=== PATIENT | female | born 1985 | race Caucasian/White ===

== ENCOUNTER 2018-02-09 16:02 | Outpatient (CLI) | payer OTHER ==
[~2018-02-09] VITALS: Ht 162.6 cm; Wt 70.1 kg
[2018-02-09] MEDS ORDERED: PREN1TAB71 PO (16:17)
[2018-02-09 16:18] VITALS: BP 121/64; Ht 162.6 cm; Wt 70.1 kg
--- NOTE | 2018-02-09 19:49 | PN ---
Triage Information Date/Time Reason for visit: She had one elevated blood pressure in [facility] during today's visit, sent for further evaluation Weeks of Gestation 25 weeks and 6 days /Para 014 Diabetes: none Hypertention: none Additional information 32-year-old with single intrauterine at 25 weeks and 6 days with a LICHA of 05/09/2018 sent for further evaluation from [facility]. She was seen in clinic today she had one elevated blood pressure, rep eat blood pressure in clinic was within normal limits. She states good movement. She denies nausea, vomiting, shortness of breath, chest pain, headache, visual changes, vaginal bleeding or LOF. Objective Vital Signs Date Temp Pulse Resp B/P (MAP) Pulse Ox O2 O2 Flow FiO2 Time Delivery Rate 02/09/18 99.0 121/64 16:18 (83) Heart Rate: 140's Contractions: None Results/Medications Result Diagram: 02/09/18 1639 02/09/18 1639 Results 24 hrs Laboratory Tests Test 02/09/18 16:00 02/09/18 16:38 02/09/18 16:39 Urine Color YELLOW Urine Clarity CLOUDY A Urine pH 7.0 Urine Specific [place] 1.020 Urine Ketones NEGATIVE Urine Nitrite NEGATIVE Urine Bilirubin NEGATIVE Urine Urobilinogen NEGATIVE Urine Leukocyte Esterase NEGATIVE Urine Microscopic RBC 1 Urine Microscopic WBC 1 Urine Squamous Epithelial Cells FEW Urine Bacteria FEW A Urine Hemoglobin NEGATIVE Urine Glucose 1+ H Urine Total Protein NEGATIVE Prothrombin Time 12.6 Prothrombin Time Ratio 1.0 INR International Normalized Ratio 0.93 Activated Partial Thromboplast Time 30.7 White Blood Count 8.0 Red Blood Count 3.97 L Hemoglobin 12.1 Hematocrit 35.9 L Mean Corpuscular Volume 90.4 Mean Corpuscular Hemoglobin 30.5 Mean Corpuscular Hemoglobin Concent 33.7 Red Cell Distribution Width 13.2 Platelet Count 247 Mean Platelet Volume 10.1 Immature Granulocytes % 0.600 H Neutrophils % 70.6 Lymphocytes % 20.8 Monocytes % 7.2 Eosinophils % 0.7 Basophils % 0.1 Nucleated Red Blood Cells % 0.0 Immature Granulocytes # 0.050 H Neutrophils # 5.7 Lymphocytes # 1.7 Monocytes # 0.6 Eosinophils # 0.1 Basophils # 0.0 Nucleated Red Blood Cells # 0.0 Sodium Level 138 Potassium Level 3.7 Chloride Level 104 Carbon Dioxide Level 25 Anion Gap 9 Blood Urea Nitrogen 8 Creatinine 0.37 L Est Glomerular Filtrat Rate mL/min > 60 Glucose Level 99 Uric Acid 2.5 L Calcium Level 9.1 Total Bilirubin 0.3 Direct Bilirubin 0.00 Indirect Bilirubin 0.3 Aspartate Amino Transf (AST/SGOT) 41 Alanine Aminotransferase (ALT/SGPT) 85 H Alkaline Phosphatase 66 Total Protein 7.1 Albumin 3.6 Globulin 3.50 H Albumin/Globulin Ratio 1.02 Imaging Results There is a single fetus in longitudinal lie, cephalic presentation. Cardiac activity is documented at 140 beats per minute. . The placenta is anterior and well clear of the cervix. Amniotic fluid index equals 23.7. Cervical length is measured transabdominally at 4.0 cm. Biophysical profile: movement 2/2 tone 2/2. breathing 2/2 NORMA 2/2 Total 09/13 IMPRESSION: 1. Biophysical profile of 09/13. RPTAT:AAJJ . Physician Lon Date Time Electronically viewed and signed by Physician Lon on 02/09/2018 18:30 GW/ Disposition: Discharge Assessment/Plan 32-year-old with single intrauterine at 25 weeks and 6 days had one elevated blood pressure during visit today, repeat the blood pressure at the clinic was normal. Patient sent here for further evaluation. All her blood pressure in triage were within normal limits. She has no symptom of preeclampsia with severe features. CBC is within normal limits, CMP performed which all are normal except ALT of 85 (upper limit of normal range is 69) UA with no urine protein. Uric acid 2.5. Labs, ultrasound discussed with patient and her partner in detail, I gave them the option to stay here for 24- hour urine protein or lab 24-hour urine protein as outpatient. She would like to do 24-hour urine protein as an outpatient. Sign and symptom of preeclampsia with severe features discussed in detail with patient and her partner both expressed understanding I strongly recommend come back to triage with any sign or symptom of severe features. AURELIA COSTELLO Feb 09, 2018 19:49
--- NOTE | 2018-02-09 23:05 | TRIAGE ---
OB Triage Datetime Report Generated by CPN: 02/09/2018 23:05 Datetime: 02/09/2018 19:11 Stage of : OB Triage Labor Evaluation Frequency: 0 Monitor Mode: External Pattern: Normal: <= 5 Contractions in 10 Minutes Resting Tone [place]: Relaxed Heart Rate FHR Baseline Rate: 130 Monitor Mode: External US Variability: Moderate 6-25 bpm Accelerations: 15X15 Decelerations: None Category: Category I Datetime: 02/09/2018 18:23 Labor Evaluation Frequency: 0 Monitor Mode: External Pattern: Normal: <= 5 Contractions in 10 Minutes Resting Tone [place]: Relaxed Heart Rate FHR Baseline Rate: 125 Monitor Mode: External US Variability: Moderate 6-25 bpm Accelerations: 15X15 Decelerations: None Category: Category I Datetime: 02/09/2018 17:39 Stage of : OB Triage Labor Evaluation Frequency: 0 Monitor Mode: External Pattern: Normal: <= 5 Contractions in 10 Minutes Resting Tone [place]: Relaxed Heart Rate FHR Baseline Rate: 135 Monitor Mode: External US Variability: Moderate 6-25 bpm Accelerations: 15X15 Decelerations: None Category: Category I Pain Presence: None/Denies Pain Type: N/A Datetime: 02/09/2018 17:22 Comments: LOSS OF CONTACT Datetime: 02/09/2018 16:21 Stage of : OB Triage Assessment Type: Triage Maternal Assessment Level of Consciousness: Fully Conscious DTR's/Clonus: DTRs 2+; No Clonus Headache: Denies Blurred Vision: No Respiratory Effort: Unlabored; Regular Rhythm; Equal Expansion Breath Sounds, Left: Clear and Equal Breath Sounds, Right: Clear and Equal Nausea/Vomiting: Denies RUQ Epigastric Pain: Denies Lower Extremities Edema: None Degree: None Upper Extremities Edema: None Facial Edema: None Fall Risk Assessment History of Falling: (0) No Secondary Diagnosis: (0) No Ambulatory Aid: (0) Bedrest/Nurse Assist IV Therapy: (0) No Gait: (0) Normal/Bedrest/Immobile Mental Status: (0) Oriented to Own Ability Fall Score: 0 Fall Risk Score Definition: No Risk: No action required Labor Evaluation Frequency: 0 Monitor Mode: External Pattern: Normal: <= 5 Contractions in 10 Minutes Resting Tone [place]: Relaxed Heart Rate FHR Baseline Rate: 140 Monitor Mode: External US Variability: Moderate 6-25 bpm Accelerations: 15X15 Decelerations: None Category: Category I Pain Assessment Pain Scale: 0 Pain Presence: None/Denies Pain Type: N/A Datetime: 02/09/2018 16:20 Time of Arrival: 02/09/2018 16:00 EGA: 25.6 Arrived By: Ambulatory Arrived From: Office Chief Complaint: SENT TO R//O ECLAMSPIA Movement: Present Contractions: Denies/Absent Rupture of Membranes: Denies Vaginal Bleeding: None Vaginal Discharge: Denies Recent Sexual Intercouse: Denies Abdominal Trauma: Not Applicable Patient Complaints: Other Time Provider Notified: 02/09/2018 19:10 Provider Notified: TRANG (Annotations: Data stored by CPN on behalf of user) Initial Plan: [facility] PANEL
== END 2018-02-09 19:55 | disposition home or self-care (01) ==
LOC: OBT 16:02 → L-D 16:04 → OBT 19:55
PROVIDERS: ATTEND Specialist
DX: O26.892 Other specified pregnancy related conditions, second trimester (principal); Z3A.25 25 weeks gestation of pregnancy
CPT/HCPCS: 76818; 80053; 81001; 84560; 85025; 85610; 85730; Z7500; G0463

== ENCOUNTER 2018-02-11 12:47 | Outpatient (CLI) | payer OTHER ==
[~2018-02-11] VITALS: Ht 162.6 cm; Wt 70.3 kg
[~2018-02-11 12:47] MED LIST: PREN1TAB71 PO
[2018-02-11 13:02] VITALS: BP 120/71; PULSE 64; RESP 18; Ht 162.6 cm; Wt 70.3 kg
--- NOTE | 2018-02-11 14:40 | TRIAGE ---
OB Triage Datetime Report Generated by CPN: 02/11/2018 14:40 Datetime: 02/11/2018 14:17 Stage of : OB Triage Frequency: none Pattern: Normal: <= 5 Contractions in 10 Minutes FHR Baseline Rate: 140 Monitor Mode: External US FHR Baseline Changes: No Baseline Change Variability: Moderate 6-25 bpm Accelerations: 15X15 Decelerations: None Category: Category I Pain Presence: None/Denies Membrane Status: Intact Datetime: 02/11/2018 14:02 Stage of : OB Triage Frequency: none Pattern: Normal: <= 5 Contractions in 10 Minutes Resting Tone [place]: Relaxed FHR Baseline Rate: 140 Monitor Mode: External US FHR Baseline Changes: No Baseline Change Variability: Moderate 6-25 bpm Accelerations: 15X15 Decelerations: None Category: Category I Pain Presence: None/Denies Datetime: 02/11/2018 13:12 Stage of : OB Triage Headache: Denies Blurred Vision: No RUQ Epigastric Pain: Denies Facial Edema: None Frequency: none Pattern: Normal: <= 5 Contractions in 10 Minutes FHR Baseline Rate: 135 Monitor Mode: External US FHR Baseline Changes: No Baseline Change Variability: Moderate 6-25 bpm Accelerations: 15X15 Decelerations: None Category: Category I Pain Presence: None/Denies Datetime: 02/11/2018 13:07 Stage of : OB Triage Headache: Denies Blurred Vision: No RUQ Epigastric Pain: Denies Facial Edema: None Frequency: none Pattern: Normal: <= 5 Contractions in 10 Minutes FHR Baseline Rate: 150 Monitor Mode: External US FHR Baseline Changes: No Baseline Change Variability: Moderate 6-25 bpm Decelerations: None Pain Presence: None/Denies Membrane Status: Intact Datetime: 02/11/2018 12:58 Time of Arrival: 02/11/2018 12:58 EGA: 26.1 Arrived By: Ambulatory Arrived From: Home Chief Complaint: follow up fr high blood pressure and 24hr urine collection Movement: Present Contractions: Denies/Absent Rupture of Membranes: Denies Vaginal Bleeding: None Vaginal Discharge: Denies Recent Sexual Intercouse: Denies Abdominal Trauma: Not Applicable Patient Complaints: Other Additional Patient Complaints: presented to triage for follow up for high blood pressure, denies h/ a, blurry vision and epigastric pain Time Provider Notified: 02/11/2018 13:16 Provider Notified: Sb Initial Plan: efm/ u/s, pi panel Datetime: 02/11/2018 12:57 Stage of : OB Triage Level of Consciousness: Fully Conscious DTR's/Clonus: DTRs 2+; No Clonus Headache: Denies Blurred Vision: No Respiratory Effort: Unlabored; Regular Rhythm; Equal Expansion Breath Sounds, Left: Clear and Equal Breath Sounds, Right: Clear and Equal Nausea/Vomiting: Denies RUQ Epigastric Pain: Denies Lower Extremities Edema: None Degree: None Upper Extremities Edema: None Degree: None Facial Edema: None Temperature Route: Oral History of Falling: (0) No Secondary Diagnosis: (0) No Ambulatory Aid: (0) Bedrest/Nurse Assist IV Therapy: (0) No Gait: (0) Normal/Bedrest/Immobile Mental Status: (0) Oriented to Own Ability Fall Score: 0 Fall Risk Score Definition: No Risk: No action required Monitor Mode: External Monitor Mode: External US Pain Scale: 0
--- NOTE | 2018-02-11 14:49 | PN ---
Triage Information Date/Time 02/11/2018 Reason for visit: for evaluation of elevated BP in office Weeks of Gestation 26 /Para Diabetes: none Hypertention: none Additional information patient was seen for routine PNC visit at [facility] on 02/09/2017. she had one elevated BP. repeat BP was normal. she denies headaches, visual changes or RUQ pain. she was sent to L&D for PIH evaluation. all her BPs were normal in L&D. Labs only significant for mild elevation of ALT. today she denies headaches, visual changes or RUQ pain. today all her BPs are normal (Done in sitting position). she denies UCs, LOF per vaginal or VB. she reports good FM. I explained to patient the abnormal ALT value and requested her to give copy of result to her PNC clinic for close monitoring. Objective Vital Signs Date Temp Pulse Resp B/P (MAP) Pulse Ox O2 O2 Flow FiO2 Time Delivery Rate 02/11/18 98.1 64 18 120/71 99 Room Air 13:02 (87) Results/Medications Result Diagram: 02/11/18 1359 02/11/18 1359 Results 24 hrs Laboratory Tests Test 02/11/18 11:00 02/11/18 13:11 02/11/18 13:59 Urine Random Creatinine 119.22 Urine Collection Duration 24 Urine Total Volume 24 Hours 1000 Urine Creatinine Timed 24 Creatinine Clearance 188.2 H Urine Total Volume (Protein) 1000 Urine Total Protein 24 Hour 60.0 Urine Color YELLOW Urine Clarity CLOUDY A Urine pH 6.0 Urine Specific [place] 1.026 Urine Ketones TRACE A Urine Nitrite NEGATIVE Urine Bilirubin NEGATIVE Urine Urobilinogen 1+ H Urine Leukocyte Esterase 1+ H Urine Microscopic RBC 4 Urine Microscopic WBC 10 H Urine Squamous Epithelial Cells MANY A Urine Bacteria FEW A Urine Mucus FEW A Urine Hemoglobin NEGATIVE Urine Glucose NEGATIVE Urine Total Protein NEGATIVE White Blood Count 8.1 Red Blood Count 3.95 L Hemoglobin 12.2 Hematocrit 36.4 L Mean Corpuscular Volume 92.2 Mean Corpuscular Hemoglobin 30.9 Mean Corpuscular Hemoglobin Concent 33.5 Red Cell Distribution Width 13.2 Platelet Count 248 Mean Platelet Volume 10.0 Immature Granulocytes % 0.600 H Neutrophils % 74.7 Lymphocytes % 17.8 Monocytes % 6.3 Eosinophils % 0.5 Basophils % 0.1 Nucleated Red Blood Cells % 0.0 Immature Granulocytes # 0.050 H Neutrophils # 6.0 Lymphocytes # 1.4 Monocytes # 0.5 Eosinophils # 0.0 Basophils # 0.0 Nucleated Red Blood Cells # 0.0 Prothrombin Time 12.7 Prothrombin Time Ratio 1.0 INR International Normalized Ratio 0.94 Activated Partial Thromboplast Time 30.8 Fibrinogen Pending Sodium Level 136 Potassium Level 4.1 Chloride Level 106 Carbon Dioxide Level 23 Anion Gap 7 Blood Urea Nitrogen 11 Creatinine 0.44 Est Glomerular Filtrat Rate mL/min > 60 Glucose Level 94 Uric Acid 2.7 L Calcium Level 9.0 Total Bilirubin 0.4 Direct Bilirubin 0.00 Indirect Bilirubin 0.4 Aspartate Amino Transf (AST/SGOT) 27 Alanine Aminotransferase (ALT/SGPT) 58 Alkaline Phosphatase 69 Total Protein 7.0 Albumin 3.6 Globulin 3.40 H Albumin/Globulin Ratio 1.05 Disposition: Discharge Assessment/Plan no sign of PIH patient may f/u at [facility] precautions given REMY BLAKE MD Feb 11, 2018 14:49
== END 2018-02-11 15:05 | disposition home or self-care (01) ==
LOC: OBT 12:47 → L-D 12:48 → OBT 15:05
PROVIDERS: ATTEND Specialist
DX: O13.2 Gestational [pregnancy-induced] hypertension without significant proteinuria, second trimester (principal); Z3A.26 26 weeks gestation of pregnancy
CPT/HCPCS: 76818; 80053; 81001; 82575; 84156; 84560; 85025; 85384; 85610; 85730; Z7500; G0463

== ENCOUNTER 2018-05-20 12:38 | Inpatient (IN) | payer OTHER ==
[~2018-05-20] VITALS: Ht 162.6 cm; Wt 75.3 kg
[2018-05-20 12:52] VITALS: Ht 162.6 cm; Wt 75.3 kg
[2018-05-20 12:53] VITALS: BP 123/75; PULSE 86; RESP 20
[2018-05-20] MEDS ORDERED: CARBOPROST 250 MCG INJ IM PRN (15:30)
[2018-05-20] MEDS ORDERED: OXYTOCIN 30 UNITS/LR 500 ML IV SCH ×3 (15:30)
[2018-05-20] MEDS ORDERED: IBUPROFEN 600 MG TAB PO PRN (15:30)
[2018-05-20] MEDS ORDERED: METHYLERGONOVINE 0.2 MG INJ IM PRN (15:30)
[2018-05-20] MEDS ORDERED: LIDOCAINE 1% (MPF) 30 ML INJ INJ PRN (15:30)
[2018-05-20] MEDS ORDERED: OXYTOCIN 30 UNITS/LR 500 ML IV PRN (15:30)
[2018-05-20] MEDS ORDERED: MISOPROSTOL 200 MCG TAB PR PRN (15:30)
[2018-05-20] MEDS ORDERED: BUTORPHANOL 2 MG INJ IV PRN (15:30)
--- NOTE | 2018-05-20 16:03 | HP ---
Date/Time of Note Date/Time of Note DATE: 05/20/18 TIME: 16:02 OB - History Hx of Present Free Text/Dictation @40+wks GA in labor : 5 Para: 4 Care: Good Care Ultrasounds: Normal mid trimester US Obstetrical Complications: None Medical Complications: None Past Family/Social History * Past Medical, Surgical, Family and Obstetric Histories reviewed from [facility]. OB Admission Exam Vital Signs Vital Signs Vital Signs Date Temp Pulse Resp B/P (MAP) Pulse Ox O2 O2 Flow FiO2 Time Delivery Rate 05/20/18 98.4 86 20 123/75 Room Air 12:53 (91) Physical Exam Abdomen: WNL Cervical Dilatation: 2cm Effacement: 75% Station: -1 Membranes: Intact Heart Rate: 140's Accelerations: Accelerations Present Decelerations: No Decelerations Varibility: Moderate Contractions on Admission: 6-10 Minutes Apart OB Assessment/Plan Reason for admission: observation Other Assessment: PMH Denies PSH Denies Plan: Expectant Management NICOL BROWNNIG M.D. May 20, 2018 16:03
[2018-05-20] MEDS: LACTATED RINGER'S 1,000 ML IV SCH ×3 (16:52→21:22)
[2018-05-20] MEDS ORDERED: FENTAnyl 2MCG/ML-ROPIV 0.2% 100 ML ONE (19:37)
--- NOTE | 2018-05-20 19:48 | PREAC ---
Date/Time of Note Date/Time of Note DATE: 05/20/18 TIME: 19:47 Anesthesia Eval and Record Evaluation Time Pre-Procedure Interview DATE: 05/20/18 TIME: 19:47 Age 32 Sex female NPO: 8 hrs Preoperative diagnosis Labor Pain Planned procedure Labor Epidural Past Medical History Past Medical History: Includes : : (6), Para: (4), Gestational age: (40) Surgery & Anesthesia Issues No known issue Meds Anticoagulation: No Beta Erick within 24 hr: No Reason Beta Erick not given: Pt. not on B-Erick Reported Medications Vit No.130/Iron/FA ( Tablet) 1 Each Tablet, 1 EACH PO DAILY 02/09/18 Current Medications Lactated Ringer's 1,000 ml @ 125 mls/hr Q8H IV Last administered on 05/20/18at 19:34; Admin Dose 125 MLS/HR; Start 05/20/18 at 15:21 Butorphanol Tartrate (Stadol) 2 mg Q2H PRN IV .PAIN; Start 05/20/18 at 15:30 Lidocaine (Xylocaine 1% (Mpf)) 30 ml ONCE PRN INJ .EPISIOTOMY; Start 05/20/18 at 15:30 Oxytocin/Lactated Ringer's 500 ml @ 500 mls/hr ONCE POST IV ; Start 05/20/18 at 15:30 Oxytocin/Lactated Ringer's 500 ml @ 125 mls/hr POST IV ; Start 05/20/18 at 15:30 Ibuprofen (Motrin) 600 mg ONCE PRN PO .PAIN 1-5; Start 05/20/18 at 15:30 Oxytocin/Lactated Ringer's 500 ml @ 0 mls/hr ONCE PRN IV .VAGINAL BLEEDING; Start 05/20/18 at 15:30 Methylergonovine Maleate (Methergine) 0.2 mg ONCE PRN IM .VAGINAL BLEEDING; Start 05/20/18 at 15:30 Carboprost Tromethamine (Hemabate) 250 mcg ONCE PRN IM .VAGINAL BLEEDING; Start 05/20/18 at 15:30 Misoprostol (Cytotec) 1,000 mcg ONCE PRN OR .VAGINAL BLEEDING; Start 05/20/18 at 15:30 Oxytocin/Lactated Ringer's 500 ml @ 0 mls/hr FOR AUGMENTATION IV ; Start 05/20/18 at 15:30 Meds reviewed: Yes Allergies Coded Allergies: No Known Allergy (Verified Allergy, Unknown, 02/18/07) Allergies Reviewed: Yes Labs/Studies Labs Reviewed: Reviewed by anesthesiologist Result Diagram: 05/20/18 1543 Laboratory Tests 05/20/18 15:43 Blood Bank Test 05/20/18 15:43 Antibody Screen NEGATIVE Blood Type A POSITIVE Rh Immune Globulin Candidate NO test: Positive Studies: ECG (n/a), CXR (n/a) Pre-procedure Exam Last vitals Vital Signs Date Temp Pulse Resp B/P (MAP) Pulse Ox O2 O2 Flow FiO2 Time Delivery Rate 05/20/18 98.4 86 20 123/75 Room Air 12:53 (91) Airway: Adequate mouth opening, Adequate thyromental dist Mallampati: Mallampati II Teeth: Normal Lung: Normal Heart: Normal ASA Physical Status ASA physical status: 2 Emergency: None Planned Anesthetic Neuraxial: Epidural Planned Pain Management Epidural Pre-operative Attestations Prior to commencing anesthesia and surgery, the patient was re-evaluated, there was verification of: *The patient's identity *The results of appropriate recent lab work and preoperative vital signs *The above evaluation not changing prior to induction *Anesthetic plan, risk benefits, alternative and complications discussed with patient/family; questions answered; patient/family understands, accepts and wishes to proceed. GLORIA SCHMITT MD May 20, 2018 19:48
--- NOTE | 2018-05-20 19:50 | PAC ---
Date/Time of Note Date/Time of Note DATE: 05/20/18 TIME: 19:50 Post-Anesthesia Notes Post-Anesthesia Note Last documented vital signs Vital Signs Date Temp Pulse Resp B/P (MAP) Pulse Ox O2 O2 Flow FiO2 Time Delivery Rate 05/20/18 98.4 86 20 123/75 97 Room Air 19:53 (91) Activity: WNL Respiratory function: WNL Cardiovascular function: WNL Mental status: Baseline Pain reasonably controlled: Yes Hydration appropriate: Yes Nausea/Vomiting absent: Yes GLORIA SCHMITT MD May 20, 2018 19:50
[2018-05-20] MEDS ORDERED: NALOXONE (0.4 MG/ML) INJ IV PRN (20:00)
[2018-05-20] MEDS ORDERED: FENTAnyl 2MCG/ML-ROPIV 0.2% 100 ML BAG EPI SCH (20:00)
[2018-05-20] MEDS ORDERED: DEXTROSE 5%-LR 1,000 ML IV SCH (21:00)
[2018-05-20] MEDS ORDERED: ONDANSETRON 4 MG INJ IV PRN (21:00)
[2018-05-21] MEDS ORDERED: FENTAnyl 2MCG/ML-ROPIV 0.2% 100 ML BAG EPI SCH (00:30)
[2018-05-21] MEDS ORDERED: NALOXONE (0.4 MG/ML) INJ IV PRN (00:30)
[2018-05-21] MEDS ORDERED: OXYTOCIN 30 UNITS/LR 500 ML IV SCH ×2 (00:30→05:51)
[2018-05-21] MEDS: LACTATED RINGER'S 1,000 ML IV SCH (03:45)
[2018-05-21] MEDS ORDERED: LACTATED RINGER'S 1,000 ML IV* SCH (05:51)
--- NOTE | 2018-05-21 05:51 | LDN ---
Date/Time of Note Date/Time of Note DATE: 05/21/18 TIME: 05:48 Delivery Summary Weeks of Gestation Term gestation Placenta Delivered: Spontaneously Meconium: none Episiotomy: No Laceration repair: Superficial skin laceration repaired with 3-0 chromic Anesthesia type: Epidural Estimated blood loss: 100 Sponge & Needle done & correct: Yes All needle counts correct: Yes Any foreign bodies felt in the: No Delivery Information Sex Sex: male Apgars 1 Minute: 9 5 Minute: 9 Suctioning Nose & mouth suctioned at shailesh: Yes Delee suction performed: No Umbilical Cord Umbilical cord with: 3 Vessels Cord presentations: nuchal cord (loose around the neck x1 reduced manually) Cord Blood was obtained: Yes Mother & Baby Disposition Disposition Baby's weight 8 pounds/ 3625 g Mom & Baby to Maternity; Good: Yes Baby to NICU: No Copies To: CC: REMY BLAKE MD ; ALEX ESCALANTE MD May 21, 2018 05:51
[2018-05-21] MEDS ORDERED: MISOPROSTOL 200 MCG TAB PR PRN (06:00)
[2018-05-21] MEDS ORDERED: OXYTOCIN 30 UNITS/LR 500 ML IV PRN (06:00)
[2018-05-21] MEDS ORDERED: METHYLERGONOVINE 0.2 MG INJ IM PRN (06:00)
[2018-05-21] MEDS ORDERED: ACETAMINOPHEN 325 MG TAB PO PRN ×2 (06:00)
[2018-05-21] MEDS ORDERED: WITCH HAZEL/GLYCERIN PAD PR PRN (06:00)
[2018-05-21] MEDS ORDERED: DIBUCAINE 1% 30 GM OINT TOP PRN (06:00)
[2018-05-21] MEDS ORDERED: CARBOPROST 250 MCG INJ IM PRN (06:00)
[2018-05-21] MEDS ORDERED: MAGNESIUM HYDROXIDE 30ML CUP PO PRN (06:00)
[2018-05-21] MEDS ORDERED: SENNA/DOCUSATE NA (8.6MG/50MG) TAB PO PRN (06:00)
[2018-05-21] MEDS ORDERED: BENZOCAINE 20% 56 ML SPRAY TOP PRN (06:00)
[2018-05-21] MEDS ORDERED: ONDANSETRON 4 MG INJ IV PRN (06:00)
[2018-05-21] MEDS: IBUPROFEN 600 MG TAB PO PRN ×3 (06:20→23:57)
[2018-05-21 06:55] VITALS: BP 123/81; PULSE 84; RESP 18
[2018-05-21 08:21] VITALS: BP 96/55; PULSE 80; RESP 18
[2018-05-21] MEDS: LANOLIN HPA 1 PKT TOP PRN (08:30)
[2018-05-21 15:44] VITALS: BP 118/74; PULSE 77; RESP 16
[2018-05-21 19:05] VITALS: BP 101/64; PULSE 82; RESP 18
[2018-05-22 04:00] VITALS: BP 121/70; PULSE 74; RESP 18
[2018-05-22] MEDS: IBUPROFEN 600 MG TAB PO PRN ×2 (05:33→15:38)
[2018-05-22 08:00] VITALS: BP 112/78; PULSE 76; RESP 18
[2018-05-22 16:00] VITALS: BP 117/67; PULSE 72; RESP 18
--- NOTE | 2018-05-22 19:20 | DS ---
Date/Time of Note Date/Time of Note DATE: 05/22/18 TIME: 19:19 Obstetrical Discharge Record Final Diagnosis Final Diagnosis: Term delivered Vaginal Delivery Obstetrical Delivery: Spontaneous Complications Augmentation: No Induction: No Rupture of Membranes: No Condition on Discharge Physical Assessment Voiding: Yes Bowel Movement: Yes Breast: Soft, non-tender, Filling Fundus: Firm Abdomen and Incision: Abdomen: soft, not tender Calf Tenderness: No Patient Condition: Good REMY BLAKE MD May 22, 2018 19:20
[2018-05-22 20:00] VITALS: BP 114/70; PULSE 75; RESP 18
[2018-05-23 08:15] VITALS: BP 116/64; PULSE 91; RESP 18
[2018-05-23] MEDS: IBUPROFEN 600 MG TAB PO PRN (08:35)
[2018-05-23] MEDS: LANOLIN HPA 1 PKT TOP PRN (08:35)
--- NOTE | 2018-05-24 11:17 | DELSUM ---
Delivery Summary A-C Datetime Report Generated by CPN: 05/24/2018 11:17 DELIVERY PERSONNEL Vessel Operator: [place], [place] MATERNAL INFORMATION Delivery Anesthesia: Epidural Medications in Delivery: OXYTOCIN 30UNITS IN 500ML LR Delivery QBL (ml): 100 Placenta Cultured: No Maternal Complications: None Other Maternal Complications: POST DATE LABOR SUMMARY EDC: 05/19/2018 00:00 No. Babies in Womb: 1 Attempted: No Labor Anesthesia: Epidural LABOR INFORMATION Reason for Induction: Postterm Onset of Labor: 05/20/2018 12:30 Complete Dilatation: 05/21/2018 04:12 Oxytocin: Augmentation Group B Beta Strep: Negative Antibiotics # of Doses: 0 Steroids Given: None Reason Steroids Not Administered: Not Applicable MEMBRANES Membranes Rupture Method: Artificial Rupture of Membranes: 05/20/2018 23:50 Length of Rupture (hr): 5.08 Amniotic Fluid Color: Clear Amniotic Fluid Amount: Small Amniotic Fluid Odor: Normal STAGES OF LABOR Stage 1 hr: 15 Stage 1 min: 42 Stage 2 hr: 0 Stage 2 min: 43 Stage 3 hr: 0 Stage 3 min: 1 Total Time in Labor hr: 16 Total Time in Labor min: 26 VAGINAL DELIVERY Episiotomy: None Laceration Extension: N/A Laceration Type: None Other Laceration: SUPERFICIAL SKIN TEAR Laceration Repair: Yes Initial Vag Sponge Count: 10 Final Vag Sponge Count: 10 Initial Vag Sharps Count: 1 Final Vag Sharps Count: 2 Sponge Count Correct: Yes Sharps Count Correct: Yes BABY A INFORMATION Infant Delivery Date/Time: 05/21/2018 04:55 Method of Delivery: Vaginal Born in Route : No : N/A Forceps: N/A Vacuum Extraction: N/A Shoulder Dystocia : No SHOULDER DYSTOCIA BABY A Infant Delivery Date/Time: 05/21/2018 04:55 PRESENTATION/POSITION BABY A Presentation: Cephalic Cephalic Presentation: Vertex Vertex Position: Left Occipital Anterior Breech Presentation: N/A PLACENTA INFORMATION BABY A Placenta Delivery Time : 05/21/2018 04:56 Placenta Method of Delivery: Spontaneous Placenta Status: Delivered SCORES BABY A Heart Rate 1 min: >100 bpm Resp Effort 1 min: Good Cry Reflex Irritability 1 min: Cough/Sneeze/Pulls Away Muscle Tone 1 min: Active Motion Color 1 min: Body [place], Extremit Blue Resuscitation Effort 1 min: Tactile Stimulation SCORE 1 MIN: 9 Heart Rate 5 min: >100 bpm Resp Effort 5 min: Good Cry Reflex Irritability 5 min: Cough/Sneeze/Pulls Away Muscle Tone 5 min: Active Motion Color 5 min: Body [place], Extremit Blue Resuscitation Effort 5 min: Tactile Stimulation SCORE 5 MIN: 9 INFANT INFORMATION BABY A Gestational Age at Delivery: 40.2 Gestational Status: Full Term- 39- 40.6 Weeks Infant Outcome : Liveborn Infant Condition : Stable Sex: Male IDENTIFICATION/MEDS BABY A ID Band Number: [id number] ID Band Location: Right Arm; Left Arm Sensor Applied: Yes Sensor Number: [id number] Sensor Location : Cord Clamp Vitamin K Given : Not Given Erythromycin Given: Not Given WEIGHT/LENGTH BABY A Birthweight (gm): 3625 Weight (lb): 8 Weight (oz): 0 Infant Length (in): 19.00 Length (cm): 48.26 CORD INFORMATION BABY A No. Cord Vessels: 3 Nuchal Cord : Around Neck x1, Loose Cord Blood Taken: Yes Banking/Donate Info: NONE Infant Suction: Mouth; Nose ASSESSMENT BABY A Infant Complications: None
== END 2018-05-23 10:20 | disposition home or self-care (01) | DRG 807 ==
LOC: OBT 12:38 → L-D 12:39 → OBT 15:15 → L-D 15:15 → PP1 05-21 06:53
PROVIDERS: ADMIT Specialist; ATTEND Specialist
PROC: 4A1HXCZ Monitoring of Products of Conception, Cardiac Rate, External Approach (ICD-10-PCS; 2018-05-20)
PROC: 10E0XZZ Delivery of Products of Conception, External Approach (ICD-10-PCS; principal; 2018-05-21)
PROC: 0HQ9XZZ Repair Perineum Skin, External Approach (ICD-10-PCS; 2018-05-21)
DX: O48.0 Post-term pregnancy (principal); Z37.0 Single live birth; O70.0 First degree perineal laceration during delivery; O69.81X0 Labor and delivery complicated by cord around neck, without compression, not applicable or unspecified; Z3A.40 40 weeks gestation of pregnancy
CPT/HCPCS: 62322; 76815; 76818; 85025; 85610; 85730; 86592; 86850; 86900; 86901; 87340; G0463; J2590; J3010; J7120; J7121